=== PATIENT | female | born 2000 | race Caucasian/White ===

== ENCOUNTER → 2018-02-07 | Outpatient (CLI) | payer OTHER ==
[2018-02-07 21:14] LABS: BASO # 0.1 10^3/uL (0.0-0.2); BASO % 0.3 % (0.0-1.0); EOS % 0.1 % (0.0-3.0); HEMATOCRIT 37.8 % (36.0-47.0); HEMOGLOBIN 13.2 g/dl (12.0-15.5); IMMATURE GRANULOCYTE % 0.4 % (0-3.0); LYMPH # 2.9 10^3/uL (1.5-6.5); LYMPH % 18.4 % (24.0-44.0); MEAN CORPUSCULAR HEMOGLOBIN 30.3 pg (27.0-33.0); MEAN CORPUSCULAR HGB CONC 34.9 g/dl (32.0-36.5); MEAN CORPUSCULAR VOLUME 86.7 fl (80.0-96.0); MONO # 0.6 10^3/uL (0.0-0.8); MONO % 4.1 % (0.0-5.0); NEUTROPHILS % 76.7 % (36.0-66.0); PLATELET COUNT, AUTOMATED 265 10^3/uL (150-450); RED BLOOD COUNT 4.36 10^6/uL (4.00-5.40); RED CELL DISTRIBUTION WIDTH 12.3 % (11.5-14.5); WHITE BLOOD COUNT 15.7 10^3/uL (4.0-10.0)
[2018-02-07 23:31] LABS: GC DNA AMPLIFICATION NEGATIVE (NEGATIVE)
[2018-02-08 08:45] LABS: CHLAMYDIA DNA AMPLIFICATION NEGATIVE (NEGATIVE)
[2018-02-08 10:29] LABS: HBsAg Prenatal NEGATIVE (NEGATIVE); HIV 1&2 SCREEN CENTAUR NEGATIVE (NEGATIVE); RUBELLA IgG QUALITATIVE IMMUNE (IMMUNE)
[2018-02-08 10:29] LABS: HEPATITIS C VIRUS ABY INDEX 0.1 INDEX (<0.8)
== END ==
LOC: M LRY 18:06
DX: Z36.89 Encounter for other specified antenatal screening (principal)
CPT/HCPCS: 86762

== ENCOUNTER → 2018-03-08 | Outpatient (REF) | payer OTHER, MEDICAID ==
[~2018-03-08] MED LIST: PRENTAB7 PO
== END ==
LOC: M LAB REF 12:59
PROVIDERS: ATTEND Advanced Practice Midwife
DX: Z34.01 Encounter for supervision of normal first pregnancy, first trimester (principal)

== ENCOUNTER 2018-03-17 20:38 | Emergency (ER) | payer OTHER, MEDICAID ==
[~2018-03-17] VITALS: Ht 175.3 cm; Wt 68.2 kg
[2018-03-17] MEDS ORDERED: PRENTAB7 PO (20:42)
[2018-03-17] MEDS ORDERED: NS 1,000 ML IV ONE (21:00)
[2018-03-17] MEDS ORDERED: ONDANSETRON 4MG/2ML VIAL (J2405) IV ONE (21:00)
[2018-03-17 21:31] LABS: HEMATOCRIT 39.9 % (36.0-47.0); HEMOGLOBIN 13.9 g/dl (12.0-15.5); MEAN CORPUSCULAR HEMOGLOBIN 29.9 pg (27.0-33.0); MEAN CORPUSCULAR HGB CONC 34.8 g/dl (32.0-36.5); MEAN CORPUSCULAR VOLUME 85.8 fl (80.0-96.0); PLATELET COUNT, AUTOMATED 202 10^3/uL (150-450); RED BLOOD COUNT 4.65 10^6/uL (4.00-5.40); WHITE BLOOD COUNT 12.2 10^3/uL (4.0-10.0)
[2018-03-17 21:51] LABS: BLOOD UREA NITROGEN 6 MG/DL (7-18); CALCIUM LEVEL 8.9 MG/DL (8.5-10.1); CARBON DIOXIDE LEVEL 23 MEQ/L (21-32); CHLORIDE LEVEL 107 MEQ/L (98-107); CREATININE FOR GFR 0.54 MG/DL (0.55-1.30); GLUCOSE, FASTING 93 MG/DL (70-100); POTASSIUM SERUM 3.8 MEQ/L (3.5-5.1); SODIUM LEVEL 139 MEQ/L (136-145)
[2018-03-17 21:53] LABS: ATYPICAL LYMPH 8 % (0-5); LYMPHOCYTES 16 % (16-52); MONOCYTES 5 % (0-8); NEUTROPHILS 71 % (35-75); PLATELET ESTIMATE NORMAL (NORMAL)
[2018-03-17] MEDS ORDERED: CHLORASEPTIC SPRAY MT PRN (22:15)
[2018-03-17] MEDS ORDERED: ONDANSETRON 4 MG ORAL DISINTEGRATING TAB (Q0162 PER 1MG) PO ONE (22:30)
[2018-03-17 22:50] VITALS: BP 106/62
== END 2018-03-17 22:51 | disposition home or self-care (01) ==
LOC: M ED 20:38
DX: O21.0 Mild hyperemesis gravidarum (principal); Z88.8 Allergy status to other drugs, medicaments and biological substances; Z3A.15 15 weeks gestation of pregnancy
CPT/HCPCS: 80048; 85025; 87880; 93041; 96361; 96374; 99284; J2405; Q0162

== ENCOUNTER → 2018-04-08 | Outpatient (REF) | payer OTHER, MEDICAID | LOC: M LAB REF 12:52 | PROVIDERS: ATTEND Advanced Practice Midwife | DX: Z34.82 Encounter for supervision of other normal pregnancy, second trimester (principal); Z36.89 Encounter for other specified antenatal screening ==

== ENCOUNTER → 2018-04-12 | Outpatient (CLI) | payer OTHER, MEDICAID ==
--- NOTE | 2018-04-12 12:28 | REP ---
SINGLE OB ULTRASOUND: HISTORY: Anatomy. A single intrauterine is present in vertex presentation. Biparietal diameter 4.2 cm = 18 weeks 5 days Head circumference 15.7 cm = 18 weeks 4 days Abdominal circumference 13.4 cm = 18 weeks 6 days Femur length 2.7 cm = 18 weeks 2 days Humerus length 2.7 cm = 28 weeks 4 days heart rate 149 beats per minute. weight 247 grams. The visualized anatomy is normal. The placenta is posterior and fundal. There is no placenta previa or abruption. Amniotic fluid is within normal limits. The cervix measures 2.9 cm. gender is documented a female. IMPRESSION: A single intrauterine is present in the vertex presentation. Gestational age by ultrasound is 18 weeks 4 days. Electronically Signed by Golden Steele MD 04/12/2018 12:41 P
== END ==
LOC: M RAD 09:56
PROVIDERS: ATTEND Advanced Practice Midwife
DX: Z34.82 Encounter for supervision of other normal pregnancy, second trimester (principal)

== ENCOUNTER → 2018-08-02 | Outpatient (CLI) | payer OTHER, MEDICAID ==
[2018-08-02 19:16] LABS: HEMATOCRIT 32.2 % (36.0-47.0); HEMOGLOBIN 10.5 g/dl (12.0-15.5); RED BLOOD COUNT 3.69 10^6/uL (4.00-5.40); WHITE BLOOD COUNT 11.7 10^3/uL (4.0-10.0)
[2018-08-02 19:17] LABS: MEAN CORPUSCULAR HEMOGLOBIN 28.5 pg (27.0-33.0); MEAN CORPUSCULAR HGB CONC 32.6 g/dl (32.0-36.5); MEAN CORPUSCULAR VOLUME 87.3 fl (80.0-96.0); PLATELET COUNT, AUTOMATED 174 10^3/uL (150-450)
== END ==
LOC: M LRY 11:48
PROVIDERS: ATTEND Advanced Practice Midwife
DX: Z34.02 Encounter for supervision of normal first pregnancy, second trimester (principal); Z3A.00 Weeks of gestation of pregnancy not specified

== ENCOUNTER → 2018-08-20 | Outpatient (REF) | payer OTHER, MEDICAID | LOC: M LAB REF 12:57 | PROVIDERS: ATTEND Obstetrics & Gynecology | DX: Z34.83 Encounter for supervision of other normal pregnancy, third trimester (principal); Z3A.00 Weeks of gestation of pregnancy not specified ==

== ENCOUNTER 2018-09-06 04:56 | Inpatient (IN) | payer OTHER, MEDICAID ==
[~2018-09-06] VITALS: Ht 175.3 cm; Wt 89.5 kg
[2018-09-06] VITALS (34 sets, daily range): BP systolic 110–159; BP diastolic 58–100
[2018-09-06 07:17] LABS: HEMATOCRIT 30.9 % (36.0-47.0); HEMOGLOBIN 9.9 g/dl (12.0-15.5); MEAN CORPUSCULAR HEMOGLOBIN 26.8 pg (27.0-33.0); MEAN CORPUSCULAR VOLUME 83.5 fl (80.0-96.0); PLATELET COUNT, AUTOMATED 152 10^3/uL (150-450); WHITE BLOOD COUNT 18.3 10^3/uL (4.0-10.0)
--- NOTE | 2018-09-06 07:21 | HPE ---
DATE OF ADMISSION: 09/06/2018 REASON FOR ADMISSION: Labor. HISTORY OF PRESENT ILLNESS: This patient is a 18-year-old 1 who presents at 39 weeks 4 days estimated gestational age by last menstrual period confirmed by first trimester ultrasound with complaints of contractions. She reports contractions throughout the day that have increased in intensity and frequency. She reports active movement. Denies any vaginal bleeding or leakage of fluid. Her course has been unremarkable. She initiated care in her first trimester and has been appropriate throughout. PAST MEDICAL HISTORY: None. PAST SURGICAL HISTORY: Tonsillectomy. PAST OBSTETRICAL HISTORY: She is 1. MEDICATIONS: Include: - vitamins - Zofran. ALLERGIES: 1. ZYRTEC. SOCIAL HISTORY: Denies any alcohol, tobacco or drug use during . PHYSICAL EXAMINATION: Her vital signs are stable. She is afebrile. She has a category 1 rate tracing, heart rate 120s with spontaneous accelerations, moderate variability, no decelerations, contractions approximately 2 to 5 minutes. GENERAL APPEARANCE: Well appearing, no acute distress. LUNGS: Clear to auscultation bilaterally. CARDIOVASCULAR: Heart regular rate and rhythm. ABDOMEN: Gravid, nontender. Estimated weight 3100 grams. CERVICAL EXAM: She was 4-5 cm dilated, 75% effaced, -2 station. Her labs her blood type is A+, antibody screen is negative. Rubella is immune. RPR is nonreactive. Hepatitis surface antigen is negative. HIV is negative. Hepatitis C is nonreactive. Chlamydia and gonorrhea screens were negative. She had a normal 1-hour Glucola. She is Group B Streptococcus (GBS) negative. ASSESSMENT 1. This patient is a 18-year-old 1 at 39 weeks 4 days estimated gestational age here in active labor. 2. Reassuring status. PLAN: 1. Admit to labor and delivery. CBC, RPR, type and screen. 2. The patient has been thoroughly counseled in regards to her procedures, the medications used in labor and delivery. She has also been verbally consented for emergency surgery, blood products, anesthesia, and desires to proceed with admission. 3. The patient would be a good candidate for an epidural. 4. Anticipate spontaneous vaginal delivery.
--- NOTE | 2018-09-06 08:27 | IPNPDOC ---
Text Note Date of Service The patient was seen on 09/06/18. NOTE Reports UC are more uncomfortable. Bloody show persists Irregular UC FH Cat I SVE 5/80/-1, midline, + show Will augment labor with pitocin. Pt undecided about epidural VS,Fishbone, I+O VS, Fishbone, I+O Laboratory Tests 09/06/18 06:59 Red Blood Count 3.70 L, Mean Corpuscular Volume 83.5, Mean Corpuscular Hemoglobin 26.8 L, Mean Corpuscular Hemoglobin Concent 32.0, Red Cell Distribution Width 14.3 Vital Signs Date Time Temp Pulse Resp B/P (MAP) Pulse Ox O2 Delivery O2 Flow Rate FiO2 09/06/18 07:15 97.5 88 16 134/92 (106) 98 Michelle Sparks CNM Sep 06, 2018 08:26
[2018-09-06] MEDS ORDERED: OXYTOCIN DRIP 30 UNITS in APPROPRIATE DILUENT 1 EA IV SCH (08:30)
[2018-09-06] MEDS: LR 1,000 ML IV SCH ×2 (08:43→12:20)
[2018-09-06] MEDS ORDERED: FENTANYL 2MCG/ML ROPIVACAINE 0.2% IN 0.9% NACL 100ML IVBAG As Ordered ONE (11:55)
--- NOTE | 2018-09-06 12:12 | IPNPDOC ---
Text Note Date of Service The patient was seen on 09/06/18. NOTE SROM clear fluid 1139. Requesting epidural UC 2-4 minutes x 45-60 seconds FH 130, Cat I SVE /-1 Anesthesia notified, pitocin off at this time VS,Fishbone, I+O VS, Fishbone, I+O Laboratory Tests 09/06/18 06:59 Red Blood Count 3.70 L, Mean Corpuscular Volume 83.5, Mean Corpuscular Hemoglobin 26.8 L, Mean Corpuscular Hemoglobin Concent 32.0, Red Cell Distribution Width 14.3 Vital Signs Date Time Temp Pulse Resp B/P (MAP) Pulse Ox O2 Delivery O2 Flow Rate FiO2 09/06/18 10:18 77 20 136/78 (97) 09/06/18 09:22 100 09/06/18 07:15 97.5 Michelle Sparks CNM Sep 06, 2018 12:12
[2018-09-06] MEDS ORDERED: EPIDURAL/PCA KEYS XX PRN (12:30)
[2018-09-06] MEDS ORDERED: REFRIGERATOR IV KEYS XX PRN (12:30)
[2018-09-06] MEDS ORDERED: ONDANSETRON 4MG/2ML VIAL (J2405) IV PRN (12:30)
[2018-09-06] MEDS ORDERED: FENTANYL/ROPIVACAINE/NACL BAG 100 ML EPIDURAL SCH (12:30)
[2018-09-06] MEDS ORDERED: EPIDURAL COMMENT XX SCH (12:30)
[2018-09-06] MEDS ORDERED: NALOXONE INJ 0.4 MG/1 ML VIAL (J2310) IV PRN (12:30)
[2018-09-06] MEDS ORDERED: ePHEDrine SULFATE 25 MG/5 ML(5MG/ML) SYRINGE IV PRN (12:30)
[2018-09-06] MEDS ORDERED: diphenhydrAMINE INJ 50MG/ML VIAL (J1200) IV PRN (12:30)
[2018-09-06] MEDS ORDERED: LACTATED RINGER'S 1000 ML IV PRN (12:30)
[2018-09-06] MEDS ORDERED: miSOPROStol 200 MCG TAB (S0191) As Ordered ONE (13:59)
[2018-09-06] MEDS ORDERED: miSOPROStol 100 MCG TAB (S0191) As Ordered ONE (14:00)
[2018-09-06 14:08] LABS: CORD GAS ABE A -8.3; CORD GAS HCO3 A 21.5 MEQ/L; CORD GAS O2 SAT A 68.4 %; CORD GAS PCO2 A 61.7 mmHg; CORD GAS PH A 7.16 UNITS; CORD GAS SBC A 17.3 MEQ/L; CORD GAS TCO2 A 23.4 MEQ/L
[2018-09-06 14:09] LABS: CORD GAS PO2 A 36.3 mmHg
[2018-09-06 14:11] LABS: CORD GAS ABE V -4.3; CORD GAS HCO3 V 21.1 MEQ/L; CORD GAS PH V 7.34 UNITS; CORD GAS SBC V 20.8 MEQ/L; CORD GAS TCO2 V 22.3 MEQ/L
[2018-09-06 14:14] LABS: CORD GAS PO2 V 44.9 mmHg
[2018-09-06] MEDS ORDERED: RHOGAM 300 MCG (1500 IU) INJ (J2790) IM SCH (14:45)
[2018-09-06] MEDS ORDERED: IBUPROFEN 600 MG TAB PO PRN (14:45)
[2018-09-06] MEDS ORDERED: MEASLES,MUMPS,RUBELLA VACCINE INJ (MMR-II) (90707) SC SCH (14:45)
[2018-09-06] MEDS ORDERED: ANUSOL HC CREAM 30GM TOP PRN (14:45)
[2018-09-06] MEDS ORDERED: ACETAMINOPHEN 500 MG TAB PO PRN (14:45)
[2018-09-06] MEDS ORDERED: ACETAMINOPHEN TAB 650MG DOSE (2X325MG) PO PRN (14:45)
[2018-09-06] MEDS ORDERED: DOCUSATE SODIUM 100 MG CAP PO PRN (14:45)
[2018-09-06] MEDS ORDERED: MOM 30ML SUSPENSION UDC PO PRN (14:45)
[2018-09-06] MEDS ORDERED: DIBUCAINE 1% OINTMENT 30GM TOP PRN (14:45)
--- NOTE | 2018-09-06 14:59 | DNPDOC ---
[facility] Delivery Note Delivery Note DATE OF DELIVERY: September 06, 2018 PREDELIVERY DIAGNOSIS: 39-4/7 weeks' gestation and labor. POST DELIVERY DIAGNOSIS: Delivered. PROCEDURE: Spontaneous vaginal delivery. PROVIDER: Michelle Sparks CNM ANESTHESIA: Epidural. ESTIMATED BLOOD LOSS: 600 mL. FINDINGS: 7 pound 13 ounce, 3530gm female , Score 8/9, occult body cord x 1 loose. DELIVERY SUMMARY: Patient is a 18-year-old 1 now para 1-0-0-1 who was admitted to labor and delivery for onset 0200 labor. She received pitocin augmentation of labor and utilized an epidural for coping. SROM clear fluid 1139. FD 1325. Viable female delivered GRETEL without difficulty, occult body cord noted. Spontaneous respirations with stimulation, transitioned on maternal abdomen. Large amount of vaginal bleeding noted with delivery. Cord doubly clamped and cut once pulsations ceased. Apgars 8/9. Cord gases arterial 7.160 with BE -8.3 and venous 7.340 with BE -4.3. Placenta zendejas, intact with 3 v cord @ 1357. 3cm clot noted adherant to lateral portion of placenta. Fundus firmed with massage and IV pitocin bolus with persistent brisk bleeding. Misoprostol 1000mcg [place] given with excellent control of bleeding. Bilateral labial lacerations with periurethral extensions noted as well as L sulcus laceration, repaired with 3-0 vicryl rapide. Single stitch of same suture for posterior fourchette abrasion. Straight cath at close of repair for 200ml clear yellow urine. EBL 600ml. Infant wt 7#13, 3530 gm. Sponge, sharp and instrument count correct. Parents are naming their daughter Angie. Michelle Sparks CNM Sep 06, 2018 14:59
[2018-09-06] MEDS ORDERED: miSOPROStol 200 MCG TAB (S0191) PR ONE (15:00)
[2018-09-06] MEDS: METHYLERGONOVINE MALEATE 0.2 MG TAB PO SCH ×2 (15:10→21:59)
[2018-09-06] MEDS: IBUPROFEN 800 MG TAB PO PRN (15:11)
[2018-09-06] MEDS ORDERED: SLF 3 ML SYR IV PRN (17:00)
[2018-09-06] MEDS: SLF 3 ML SYR IV SCH (22:00)
[2018-09-07] MEDS: IBUPROFEN 800 MG TAB PO PRN (02:44)
[2018-09-07] MEDS: METHYLERGONOVINE MALEATE 0.2 MG TAB PO SCH ×2 (02:44→09:50)
[2018-09-07 06:00] VITALS: BP 130/75
[2018-09-07] MEDS: SLF 3 ML SYR IV SCH ×2 (06:00→14:00)
[2018-09-07] MEDS: PRENATAL VITAMINS CHEWABLE TABLET PO SCH ×2 (09:50→17:45)
[2018-09-07] MEDS ORDERED: METHYLERGONOVINE MALEATE 0.2 MG TAB PO PRN (15:00)
[2018-09-07 18:02] VITALS: BP 117/57
[2018-09-08 06:00] VITALS: BP 116/80
[2018-09-08] MEDS ORDERED: ACET-683 PO (09:03)
[2018-09-08] MEDS ORDERED: IBUP80TA PO (09:03)
== END 2018-09-08 13:45 | disposition home or self-care (01) | DRG 560 ==
LOC: M LDO 04:56 → M LDI 06:17 → M OBS 16:47
PROVIDERS: ADMIT Obstetrics & Gynecology; ATTEND Advanced Practice Midwife
PROC: 10E0XZZ Delivery of Products of Conception, External Approach (ICD-10-PCS; principal; 2018-09-06)
PROC: 0HQ9XZZ Repair Perineum Skin, External Approach (ICD-10-PCS; 2018-09-06)
PROC: 0UQMXZZ Repair Vulva, External Approach (ICD-10-PCS; 2018-09-06)
DX: O80 Encounter for full-term uncomplicated delivery (principal); O43.893 Other placental disorders, third trimester; O69.82X0 Labor and delivery complicated by other cord entanglement, without compression, not applicable or unspecified; Z3A.39 39 weeks gestation of pregnancy; O71.82 Other specified trauma to perineum and vulva; Z37.0 Single live birth; O70.0 First degree perineal laceration during delivery

== ENCOUNTER → 2019-04-01 | Outpatient (REF) | payer OTHER, MEDICAID ==
[~2019-04-01] MED LIST changes: +ACET-683 PO; +IBUP80TA PO
[2019-04-01 16:26] LABS: HEMATOCRIT 34.6 % (36.0-47.0); HEMOGLOBIN 10.7 g/dl (12.0-15.5); MEAN CORPUSCULAR HEMOGLOBIN 24.4 pg (27.0-33.0); MEAN CORPUSCULAR HGB CONC 30.9 g/dl (32.0-36.5); MEAN CORPUSCULAR VOLUME 78.8 fl (80.0-96.0); PLATELET COUNT, AUTOMATED 224 10^3/uL (150-450); RED BLOOD COUNT 4.39 10^6/uL (4.00-5.40); WHITE BLOOD COUNT 9.8 10^3/uL (4.0-10.0)
[2019-04-01 18:22] LABS: CHLAMYDIA DNA AMPLIFICATION NEGATIVE (NEGATIVE); GC DNA AMPLIFICATION NEGATIVE (NEGATIVE)
[2019-04-02 13:32] LABS: HEPATITIS B SURFACE ANTIGEN NEGATIVE (NEGATIVE); HEPATITIS C VIRUS ABY INDEX < 0.0 INDEX (<0.8); HIV 1&2 SCREEN CENTAUR NEGATIVE (NEGATIVE); RUBELLA IgG QUALITATIVE IMMUNE (IMMUNE)
== END ==
LOC: M PLALAB 09:58
PROVIDERS: ATTEND Advanced Practice Midwife
DX: Z34.92 Encounter for supervision of normal pregnancy, unspecified, second trimester (principal)

== ENCOUNTER → 2019-04-15 | Outpatient (REF) | payer MEDICAID, OTHER | LOC: M SFHCWAGY 13:22 | PROVIDERS: ATTEND Advanced Practice Midwife | DX: Z34.92 Encounter for supervision of normal pregnancy, unspecified, second trimester (principal) ==

== ENCOUNTER → 2019-04-28 | Outpatient (CLI) | payer MEDICAID ==
--- NOTE | 2019-04-28 13:51 | REP ---
Obstetric sonography: History: Supervision of second trimester study. Findings: Scanning through the gravid uterus demonstrates a viable single intrauterine gestation in a transverse, head to the maternal left lie. motion is observed and heart rate is recorded at 127 beats per minute. A posterior grade 1 placenta is seen without evidence of previa or abruption. No extrauterine abnormalities observed. No anomaly is seen. The following anatomic structures are identified and felt to be unremarkable: cranium, choroid plexus, cavum, cerebellum and posterior fossa, nuchal fold, face and profile, four-chamber heart with left and right ventricular outflow tract views, diaphragm, left-sided stomach, three-vessel cord, abdominal wall cord insertion, kidneys and bladder, spine, upper and lower extremities. Biometry chart: BPD 4.8 cm = 20 weeks 4 days Head circumference 17.9 cm = 20 weeks 2 days Abdominal circumference 15.8 cm = 21 weeks 0 days Femur length 3.6 cm = 21 weeks 3 days Humeral length 3.3 cm = 21 weeks 1 day HC/AC ratio normal 1.13. Cephalic index normal 0.74. Estimated weight 396 grams, 0 pounds 13 ounces, 62nd percentile for 20 weeks 4 days. Impression: Viable single intrauterine gestation at 20 weeks 4 days by today's composite sonographic criteria. VILMA by today's sonography September 11, 2019.
== END ==
LOC: M WHC 10:57
PROVIDERS: ATTEND Advanced Practice Midwife
DX: Z34.92 Encounter for supervision of normal pregnancy, unspecified, second trimester (principal); Z3A.20 20 weeks gestation of pregnancy

== ENCOUNTER → 2019-06-02 | Outpatient (REF) | payer OTHER, MEDICAID ==
[2019-06-02 16:46] LABS: HEMATOCRIT 32.2 % (36.0-47.0); HEMOGLOBIN 10.1 g/dl (12.0-15.5); MEAN CORPUSCULAR HGB CONC 31.4 g/dl (32.0-36.5); MEAN CORPUSCULAR VOLUME 79.7 fl (80.0-96.0); PLATELET COUNT, AUTOMATED 204 10^3/uL (150-450); RED BLOOD COUNT 4.04 10^6/uL (4.00-5.40); WHITE BLOOD COUNT 10.8 10^3/uL (4.0-10.0)
== END ==
LOC: M PLALAB 09:12
PROVIDERS: ATTEND Advanced Practice Midwife
DX: Z34.82 Encounter for supervision of other normal pregnancy, second trimester (principal)

== ENCOUNTER → 2019-06-16 | Outpatient (CLI) | payer OTHER, MEDICAID | LOC: M LAB 08:02 | PROVIDERS: ATTEND Advanced Practice Midwife | DX: Z34.83 Encounter for supervision of other normal pregnancy, third trimester (principal); Z3A.00 Weeks of gestation of pregnancy not specified ==

== ENCOUNTER → 2019-08-07 | Outpatient (REF) | payer OTHER | LOC: M SFHCWAGY 10:16 | PROVIDERS: ATTEND Nurse Practitioner Women's Health | DX: Z3A.35 35 weeks gestation of pregnancy (principal) ==

== ENCOUNTER → 2019-08-13 | Outpatient (REF) | payer OTHER, MEDICAID ==
[~2019-08-13] MED LIST changes: +COLA100C5 PO; +IRON325T2 PO; +TUMS750C20 PO
== END ==
LOC: M PLALAB 09:05
PROVIDERS: ATTEND Nurse Practitioner Women's Health
DX: Z3A.35 35 weeks gestation of pregnancy (principal)

== ENCOUNTER → 2019-08-22 | Outpatient (CLI) | payer MEDICAID, OTHER ==
[~2019-08-22] VITALS: Ht 175.3 cm; Wt 89.6 kg
[2019-08-22 13:06] VITALS: BP 102/57
--- NOTE | 2019-08-22 14:02 | IPNPDOC ---
Text Note Date of Service The patient was seen on 08/22/19. NOTE Outpatient 19yo VILMA 09/05/2019. Presents @ 38 wks with complaints of irregular contractions this morning. Denies LOF, bleeding. Pt reports having IC last night. Hx is significant for advanced dilation yesterday in office. No apparent distress Cat I tracing, FH 135 Irregular UC SVE cervix far posterior, /-2, unchanged from office exam of [facility] Will ambulate, hydrate and reassess VS,Fishbone, I+O VS, Fishbone, I+O Vital Signs Date Time Temp Pulse Resp B/P (MAP) Pulse Ox O2 Delivery O2 Flow Rate FiO2 08/22/19 13:06 97.2 72 20 102/57 (72) 99 Room Air Michelle Sparks CNM August 22, 2019 14:02
[2019-08-22 14:32] VITALS: BP 118/75
[2019-08-22 15:22] VITALS: BP 95/49
[2019-08-22 15:23] VITALS: BP 93/52
--- NOTE | 2019-08-22 16:07 | IPNPDOC ---
Text Note Date of Service The patient was seen on 08/22/19. NOTE Outpatient Pt reports she feels more uncomfortable when at rest, primarily her back. Denies bleeding or LOF UC remain mild, irregular Cat I tracing SVE unchanged. Discharged home. Routine labor precautions. Make appt for next week. VS,Fishbone, I+O VS, Fishbone, I+O Vital Signs Date Time Temp Pulse Resp B/P (MAP) Pulse Ox O2 Delivery O2 Flow Rate FiO2 08/22/19 15:23 78 93/52 (66) 08/22/19 15:22 20 08/22/19 13:06 97.2 99 Room Air Michelle Sparks CNM August 22, 2019 16:07
[2019-08-22 17:12] VITALS: BP 115/75
== END ==
LOC: M LDO 12:46
PROVIDERS: ATTEND Advanced Practice Midwife
DX: O26.873 Cervical shortening, third trimester (principal); Z3A.38 38 weeks gestation of pregnancy
CPT/HCPCS: 59025; G0378; G0463

== ENCOUNTER 2019-08-23 23:58 | Inpatient (IN) | payer OTHER ==
[~2019-08-23] VITALS: Ht 175.3 cm; Wt 91.0 kg
[2019-08-24] VITALS (36 sets, daily range): BP systolic 76–158; BP diastolic 43–111
[2019-08-24 01:01] LABS: HEMATOCRIT 29.6 % (36.0-47.0); HEMOGLOBIN 9.4 g/dl (12.0-15.5); MEAN CORPUSCULAR HEMOGLOBIN 24.7 pg (27.0-33.0); MEAN CORPUSCULAR HGB CONC 31.8 g/dl (32.0-36.5); MEAN CORPUSCULAR VOLUME 77.7 fl (80.0-96.0); PLATELET COUNT, AUTOMATED 177 10^3/uL (150-450); RED BLOOD COUNT 3.81 10^6/uL (4.00-5.40); WHITE BLOOD COUNT 15.1 10^3/uL (4.0-10.0)
[2019-08-24] MEDS ORDERED: LACTATED RINGER'S 1000 ML IV STA (01:53)
[2019-08-24] MEDS ORDERED: LR 1,000 ML IV SCH ×2 (01:53→14:00)
[2019-08-24] MEDS: CALCIUM CARBONATE 500 MG CHEW U/D PO PRN ×3 (01:58→11:21)
[2019-08-24] MEDS ORDERED: FENTANYL 2MCG/ML ROPIVACAINE 0.2% IN 0.9% NACL 100ML IVBAG As Ordered ONE (02:02)
[2019-08-24] MEDS ORDERED: LACTATED RINGER'S 1000 ML IV PRN (02:43)
[2019-08-24] MEDS ORDERED: EPIDURAL/PCA KEYS XX PRN (02:43)
[2019-08-24] MEDS ORDERED: ONDANSETRON 4MG/2ML VIAL IV PRN ×2 (02:43→12:30)
[2019-08-24] MEDS ORDERED: diphenhydrAMINE 50MG/ML VIAL (J1200) IV PRN (02:43)
[2019-08-24] MEDS ORDERED: EPIDURAL COMMENT XX SCH (02:43)
[2019-08-24] MEDS ORDERED: NALOXONE INJ 0.4MG/1ML VIAL (J2310 PER 1MG) IV PRN (02:43)
[2019-08-24] MEDS ORDERED: FENTANYL/ROPIVACAINE/NACL BAG 100 ML EPIDURAL SCH (02:43)
[2019-08-24] MEDS ORDERED: REFRIGERATOR IV KEYS XX PRN (02:43)
[2019-08-24] MEDS: ePHEDrine SULFATE 25 MG/5 ML(5MG/ML) SYRINGE IV PRN ×3 (03:13→03:21)
[2019-08-24] MEDS ORDERED: ePHEDrine SULFATE 25 MG/5 ML(5MG/ML) SYRINGE As Ordered ONE (03:13)
[2019-08-24] MEDS ORDERED: OXYTOCIN 30 UNITS IN 0.9% NaCl 500ML IV BAG (J2590) As Ordered ONE (07:37)
[2019-08-24] MEDS ORDERED: OXYTOCIN DRIP 30 UNITS in IV 1 EA IV SCH ×2 (10:00→13:30)
[2019-08-24] MEDS ORDERED: ACETAMINOPHEN TAB 650MG DOSE (2X325MG) PO PRN (12:30)
[2019-08-24] MEDS ORDERED: DOCUSATE SODIUM 100 MG CAP PO PRN (12:30)
[2019-08-24] MEDS ORDERED: MEASLES,MUMPS,RUBELLA VACCINE INJ (MMR-II) (90707) SC SCH (12:30)
[2019-08-24] MEDS ORDERED: IBUPROFEN 800 MG TAB PO PRN (12:30)
[2019-08-24] MEDS ORDERED: ACETAMINOPHEN 500 MG TAB PO PRN (12:30)
[2019-08-24] MEDS ORDERED: IBUPROFEN 600 MG TAB PO PRN (12:30)
[2019-08-24] MEDS ORDERED: RHOGAM 300 MCG (1500 IU) INJ (J2790) IM SCH (12:30)
[2019-08-24] MEDS ORDERED: DIBUCAINE 1% OINTMENT 30GM TOP PRN (12:30)
[2019-08-24] MEDS ORDERED: PROMETHAZINE 25 MG TAB PO PRN (12:30)
[2019-08-25 06:00] VITALS: BP 121/64
[2019-08-25] MEDS ORDERED: ACET-683 PO (07:57)
[2019-08-25 08:45] LABS: HEMATOCRIT 30.9 % (36.0-47.0); HEMOGLOBIN 9.8 g/dl (12.0-15.5); MEAN CORPUSCULAR HEMOGLOBIN 25.1 pg (27.0-33.0); MEAN CORPUSCULAR HGB CONC 31.7 g/dl (32.0-36.5); MEAN CORPUSCULAR VOLUME 79.2 fl (80.0-96.0); PLATELET COUNT, AUTOMATED 161 10^3/uL (150-450); WHITE BLOOD COUNT 12.1 10^3/uL (4.0-10.0)
[2019-08-25] MEDS ORDERED: PRENATAL VITAMINS CHEWABLE TABLET PO SCH (09:00)
[2019-08-25] MEDS ORDERED: INFLUENZA QUADRIVALENT PF VACCINE 0.5ML SYRINGE (90686) IM ONE (09:00)
== END 2019-08-25 13:20 | disposition home or self-care (01) | DRG 560 ==
LOC: M LDO 23:58 → M LDI 08-24 00:13 → M OBS 08-24 15:03
PROVIDERS: ADMIT Obstetrics & Gynecology; ATTEND Obstetrics & Gynecology
PROC: 10E0XZZ Delivery of Products of Conception, External Approach (ICD-10-PCS; principal; 2019-08-24)
DX: O69.81X0 Labor and delivery complicated by cord around neck, without compression, not applicable or unspecified (principal); Z37.0 Single live birth; Z3A.38 38 weeks gestation of pregnancy

== ENCOUNTER → 2020-05-11 | Outpatient (REF) | payer OTHER ==
[2020-05-11 16:11] LABS: CHLAMYDIA DNA AMPLIFICATION NEGATIVE (NEGATIVE); GC DNA AMPLIFICATION NEGATIVE (NEGATIVE)
== END ==
LOC: M SFHCWAGY 13:06
PROVIDERS: ATTEND Obstetrics & Gynecology
DX: Z12.4 Encounter for screening for malignant neoplasm of cervix (principal); Z11.3 Encounter for screening for infections with a predominantly sexual mode of transmission; R87.610 Atypical squamous cells of undetermined significance on cytologic smear of cervix (ASC-US)
CPT/HCPCS: 87624; 87661; G0123

== ENCOUNTER → 2020-05-18 | Outpatient (CLI) | payer OTHER, MEDICAID ==
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
== END ==
LOC: M WHC 15:46
PROVIDERS: ATTEND Obstetrics & Gynecology
DX: N83.209 Unspecified ovarian cyst, unspecified side (principal)

== ENCOUNTER 2021-09-27 14:04 | Emergency (ER) | payer MEDICAID, OTHER ==
[~2021-09-27] VITALS: Ht 175.3 cm; Wt 72.1 kg
[2021-09-27 14:04] VITALS: BP 131/86
[2021-09-27 16:48] LABS: BASO % 0.2 % (0.0-1.0); EOS % 0.2 % (0.0-3.0); HEMATOCRIT 37.6 % (36.0-47.0); HEMOGLOBIN 13.1 g/dl (12.0-15.5); LYMPH # 2.2 10^3/uL (1.5-5.0); LYMPH % 16.7 % (24.0-44.0); MEAN CORPUSCULAR HEMOGLOBIN 30.4 pg (27.0-33.0); MEAN CORPUSCULAR HGB CONC 34.8 g/dl (32.0-36.5); MEAN CORPUSCULAR VOLUME 87.2 fl (80.0-96.0); MONO # 0.6 10^3/uL (0.0-0.8); MONO % 4.6 % (2.0-8.0); NEUTROPHILS # 10.4 10^3/uL (1.5-8.5); NEUTROPHILS % 77.8 % (36.0-66.0); PLATELET COUNT, AUTOMATED 230 10^3/uL (150-450); RED BLOOD COUNT 4.31 10^6/uL (4.00-5.40); WHITE BLOOD COUNT 13.4 10^3/uL (4.0-10.0)
[2021-09-27 16:52] LABS: APPEARANCE, URINE HAZY (CLEAR); BACTERIA, URINE AUTO 1+ (NEGATIVE); BILIRUBIN, URINE AUTO NEGATIVE (NEGATIVE); BLOOD, URINE BLOOD 1+ (NEGATIVE); COLOR, URINE YELLOW (YELLOW); GLUCOSE, URINE (UA) AUTO NEGATIVE (NEGATIVE); KETONE, URINE AUTO TRACE mg/dL (NEGATIVE); LEUKOCYTE ESTERASE, URINE AUTO 2+ (NEGATIVE); MUCUS, URINE SMALL (NEGATIVE); NITRITE, URINE AUTO NEGATIVE (NEGATIVE); PROTEIN, URINE AUTO NEGATIVE (NEGATIVE); RBC, URINE AUTO 1 /HPF (0-3); SPECIFIC GRAVITY URINE AUTO 1.025 (1.002-1.035); SQUAMOUS EPITHELIAL CELL UR AU 15 /HPF (0-6); WBC, URINE AUTO 12 /HPF (0-3)
[2021-09-27 17:14] LABS: BLOOD UREA NITROGEN 6 MG/DL (7-18); CALCIUM LEVEL 9.1 MG/DL (8.5-10.1); CARBON DIOXIDE LEVEL 23 MEQ/L (21-32); CHLORIDE LEVEL 111 MEQ/L (98-107); CREATININE FOR GFR 0.44 MG/DL (0.55-1.30); GLOMERULAR FILTRATION RATE > 60.0 (>60); GLUCOSE, FASTING 106 MG/DL (70-100); HCG, SERUM QUANTITATIVE 8506 MIU/ML; POTASSIUM SERUM 4.1 MEQ/L (3.5-5.1); SODIUM LEVEL 142 MEQ/L (136-145)
[2021-09-27 19:47] LABS: GC DNA AMPLIFICATION NEGATIVE (NEGATIVE)
== END 2021-09-28 05:30 | disposition home or self-care (01) ==
LOC: M ED 14:04
DX: O26.91 Pregnancy related conditions, unspecified, first trimester (principal); R10.2 Pelvic and perineal pain; Z3A.19 19 weeks gestation of pregnancy; Z91.010 Allergy to peanuts; Z88.8 Allergy status to other drugs, medicaments and biological substances; Z53.21 Procedure and treatment not carried out due to patient leaving prior to being seen by health care provider